=== PATIENT | female | born 1970 | race Two or more races ===

== ENCOUNTER 2020-08-14 08:26 | Emergency (ER) | payer MEDICAID, OTHER ==
[~2020-08-14] VITALS: Ht 149.9 cm; Wt 66.7 kg
[2020-08-14 08:34] VITALS: BP 151/84
[2020-08-14 09:42] LABS: Basophils # (auto) 0 10 ^3/uL (0-0.2); Basophils % (auto) 0.5 % (0.0-2.0); Eosinophils # (auto) 0.2 10 ^3/uL (0-0.8); Eosinophils % (auto) 2.2 % (0.0-7.0); Hematocrit 40.7 % (36.0-46.0); Hemoglobin 13.7 g/dL (12.2-16.2); Lymphocytes # (auto) 2.8 10 ^3/uL (0.4-5.4); Lymphocytes % (auto) 38.9 % (10.0-50.0); Mean Corpuscular Hgb Conc. 33.6 g/dL (32.0-36.0); Mean Corpuscular Volume 89.5 fL (80.0-100.0); Monocytes # (auto) 0.6 10 ^3/uL (0-1.3); Monocytes % (auto) 7.6 % (0.0-12.0); Neutrophils # (auto) 3.7 10 ^3/uL (1.6-8.6); Neutrophils % (auto) 50.8 % (37.0-80.0); Nucleated Red Blood Cells % 0.1 %; Platelet Count (auto) 205 10^3/uL (140-450); Red Blood Cells 4.55 10^6/uL (4.0-5.20); Red Cell Distribution Width 13.6 % (11.8-14.3); White Blood Cell 7.3 10^3/uL (4.4-10.8)
[2020-08-14 09:55] LABS: Albumin 3.7 g/dL (3.4-5.0); Anion Gap 4 (5-15); Blood Urea Nitrogen 15 mg/dL (7-18); Calcium 8.7 mg/dL (8.5-10.1); Carbon Dioxide 25 mmol/L (21-32); Chloride 109 mmol/L (98-107); Glucose 144 mg/dL (74-106); Potassium 4.2 mmol/L (3.5-5.1); Sodium 138 mmol/L (136-145)
[2020-08-14 10:01] LABS: Alanine Aminotransferase 24 U/L (13-56); Alkaline Phosphatase 106 U/L (45-117); Aspartate Aminotransferase 13 U/L (15-37); BUN/Creatinine Ratio 20.3; Bilirubin, Total 0.5 mg/dL (0.2-1.0); GFR African American 106 mL/min; GFR Non-African American 88 mL/min
== END 2020-08-14 10:46 | disposition home or self-care (01) ==
LOC: ER 08:26
DX: R07.89 Other chest pain (principal)
CPT/HCPCS: 36415; 71046; 80053; 84484; 85025; 93005

== ENCOUNTER → 2020-12-30 | Outpatient (CLI) | payer MEDICAID | END | disposition home or self-care (01) | LOC: Rad HDHVI 10:01 | PROVIDERS: ATTEND Internal Medicine | DX: I07.1 Rheumatic tricuspid insufficiency (principal); I10 Essential (primary) hypertension; R07.9 Chest pain, unspecified | CPT/HCPCS: 93306 ==

== ENCOUNTER → 2021-01-06 | Outpatient (CLI) | payer MEDICAID ==
[~2021-01-06] VITALS: Ht 149.9 cm; Wt 67.6 kg
== END | disposition home or self-care (01) ==
LOC: Rad HDHVI 09:27
PROVIDERS: ATTEND Internal Medicine Cardiovascular Disease
DX: I10 Essential (primary) hypertension (principal); R07.9 Chest pain, unspecified
CPT/HCPCS: 78452; 93017; 96374; A9500

== ENCOUNTER 2022-10-24 07:17 | Day surgery (SDC) | payer MEDICAID ==
[~2022-10-24] VITALS: Ht 149.9 cm; Wt 63.5 kg
[2022-10-24] MEDS ORDERED: IOHEXOL 350 MG/ML 100ML IJ ONE (07:25)
[2022-10-24] MEDS ORDERED: IODIXANOL 320MG/ML 100ML BTL IV ONE (07:25)
[2022-10-24] MEDS ORDERED: LIDOCAINE 2%HCL (LOCAL ANESTH.) INJ 10ml MDV ONE (07:25)
[2022-10-24] MEDS ORDERED: ANGIOMAX 250 MG VIAL IV ONE (07:58)
[2022-10-24] MEDS ORDERED: VERAPAMIL 2.5MG/ML INJ 2ML VIAL IV ONE (07:58)
[2022-10-24] MEDS ORDERED: HEPARIN SODIUM (PORCINE) 5000 UNITS/ML 1ML VIAL ONE (07:58)
[2022-10-24] MEDS ORDERED: MIDAZOLAM HCL 2MG/2ML 2ml VIAL (1mg/ml) ONE (07:59)
[2022-10-24] MEDS ORDERED: fentaNYL CITRATE 100 MCG/2 ML VL ONE (07:59)
[2022-10-24] MEDS ORDERED: SODIUM CHL 0.9% 0 ML ONE (07:59)
[2022-10-24] MEDS ORDERED: NITROGLYCERIN 5MG/ML 10ML VIAL IV ONE (08:00)
[2022-10-24] MEDS ORDERED: SODIUM CHL 0.9% 50 ML ONE (08:00)
[2022-10-24] MEDS ORDERED: [UNRECOGNIZED DRUG - CODE] SC (09:26)
[2022-10-24] MEDS ORDERED: ASPI1TAB19 PO (09:26)
[2022-10-24] MEDS ORDERED: LEFL1TAB3 PO (09:26)
[2022-10-24] MEDS ORDERED: ATOR20TA50 PO (09:26)
[2022-10-24] MEDS ORDERED: GABA100C9 PO (09:26)
[2022-10-24] MEDS ORDERED: CHOL20007 PO (09:26)
== END 2022-10-24 11:10 | disposition home or self-care (01) ==
LOC: CATH 07:17
PROVIDERS: ATTEND Internal Medicine Cardiovascular Disease
DX: R07.89 Other chest pain (principal); R94.39 Abnormal result of other cardiovascular function study; R06.02 Shortness of breath; R06.09 Other forms of dyspnea; M06.9 Rheumatoid arthritis, unspecified; G62.9 Polyneuropathy, unspecified; Z90.49 Acquired absence of other specified parts of digestive tract; Z98.890 Other specified postprocedural states
CPT/HCPCS: 93458; C1769; C1887; C1894; J1644; J2001; J2250; J3010; J3490; J7030; Q9967; U0003; 99152